=== PATIENT | male | born 1950 | race Caucasian/White ===

== ENCOUNTER → 2018-12-31 | Day surgery (SDC) | payer MEDICARE ==
[~2018-12-31] MED LIST: Diazepam TAB(*) 5 MG ONE; Heparin 2 UNITS/ML IVPREMIX* 2,000 ML IV ONE; Heparin(*) 1000 UNIT/ML 10 ML VIAL CATH LAB IV ONE; Iohexol 350 (CONTRAST) 200 ML MDV IV ONE; Lidocaine 1% INJ* 10 MG/ML 30 ML SDV ONE; Midazolam* 1 MG/ML 5 ML VIAL (5 MG) ONE; NS 0.9% 1000 ML** 1,000 ML IV SCH; VERAPAMIL 2.5 MG/ML 2 ML VIAL ** 5 mg/2 ml ONE; diPHENhydraMINE PO* 25 MG ONE; fentaNYL* 50 MCG/ML 2 ML VIAL (100 MCG VIAL) ONE; nitroGLYCERIN DRIP* 25,000 MCG/250 ML BTL ONE
[2018-12-31 11:57] LABS: BUN/Creatinine Ratio 19.2 (8-20); Calcium 9.4 mg/dL (8.6-10.3); EGFR African American 128.5 (>60); EGFR Non-African American 106.2 (>60)
--- NOTE | 2018-12-31 12:34 | CATH ---
"*[facility]* [place] [address] Main: [phone] [email or web address] Cardiac Catheterization Patient: Ghanshyam Contreras : 1950 Study Date: 12/31/2018 Age: 68 Gender: M HR: Height: 67 in /170.2 cm BSA: 2.36 m^2 Weight: 247.9 lb /112.7 kg BMI: 38.9 kg/m^2 Carbon Printer: Kaveh Gómez MD Ordering Physician: Kaveh Gómez MD Referring Physician: Kaveh Gómez MD D, - Right coronary angiography. - Left coronary angiography. - Left heart catheterization with angiography. Summary: 1. LAD: Mid-vessel lesion: There is a 90% stenosis. 2. 1st diagonal: Proximal vessel lesion: There is a 90% stenosis. 3. Left circumflex: Proximal vessel lesion: There is a 95% stenosis. Mid-vessel lesion: There is a 90% stenosis. 4. 1st obtuse marginal: Proximal vessel lesion: There is a 90% stenosis. 5. 2nd obtuse marginal: Proximal vessel lesion: There is a 90% stenosis. 6. Right coronary: Proximal vessel lesion: There is a 100% stenosis. 7. Left ventricle: Systolic function is normal. The estimated ejection fraction is 55-60%. 8. Severe 3 vessle CAD. Recommendations: Urgent CABG Case discussed with Dr Christine. History: Risk factors: Hypertension. Diabetes mellitus; on therapy with insulin. Medications: The patient received no antianginal therapy in the last two weeks. Labs, prior tests, procedures, and surgery: Stress myocardial perfusion imaging. Abnormal. High risk of ischemia. Blood tests: International normalized ratio (INR) of 1.02. Partial thromboplastin time (PTT) of 34.7 sec. Serum sodium (Na) of 136 mEq/l. Serum creatinine (current admission) of 0.71 mg/dl. Blood urea nitrogen of 14 mg/dl. Glucose of 248 mg/dl. Platelet count of 222 th/ul. White blood cell count (WBC) of 0.01 th/ul[place] [address] th/ul. Hematocrit of 45 %. Hemoglobin (pre-procedure) of 15.1 g/dl. Study data: Study status: Cardiac cath: elective. Location: Catheterization laboratory. Consent: The risks, benefits, and alternatives to the procedure were explained to the patient and/or their healthcare branch sales and service representative and written informed consent was obtained. All available pre-procedure labs were reviewed. Height: 170.2 cm. 67 in. Weight: 112.7 kg. 247.9 lb. Body surface area: 2.36 m^2. Body mass index: 38.9 kg/m^2. Procedure: 1. Initial setup. The patient was brought to the laboratory. Surface ECG leads, blood pressure measurements, and pulse oximetric signals were monitored. A baseline seven lead ECG was recorded. A time out was observed per protocol. 2. Skin preparation. The planned puncture sites were prepped and draped in the usual sterile manner. 3. Local anesthesia. 1% lidocaine was administered. 4. Sedation. was administered. 5. Supplemental oxygen. Oxygen, 2 L/min was administered throughout the procedure. 6. Local anesthesia. 1% lidocaine (1 ml) was administered. 7. Right radial artery access. A 6F Glidesheath Slender sheath was advanced into the vessel. 8. Selective right coronary angiography. A 5F TIG 4.0 catheter was advanced into the right coronary vessel ostium under fluoroscopic guidance. Contrast was injected. Images were obtained in multiple projections. 9. Selective left coronary angiography. A 5F FL 3.5 Diagnostic Impulse catheter was advanced into the left coronary vessel ostium under fluoroscopic guidance. Contrast was injected. Images were obtained in multiple projections. 10. Left heart catheterization with angiography. A 5F PIG Short Radial catheter was advanced across the aortic valve to the left ventricle under fluoroscopic guidance. 28 ml of contrast was injected at 14 ml/s. 11. Right radial artery hemostasis. Vessel closure was achieved with a Regular Vasc Band device. Study completion: Minimal estimated blood loss. All catheters inserted during the procedure were removed. There were no apparent complications. Administered medications: VALIUM (Diazepam), 5mg, PO. BENADRYL (Diphenhydramine), 25mg, PO. VERSED (Midazolam), 1mg, IV. Fentanyl, 25mcg, IV. (Radial) Nitroglycerin, 300mcg, intra-arterially. (Radial) Verapamil, 3mg, intra-arterially. (Radial) Heparin, 3,000units, intra-arterially. Contrast: Omnipaque 350 70 ml (total dose). Omnipaque 350 330 ml (wasted). Radiation: Fluoroscopy dose: 147.3 cGy. Discharge: The patient tolerated the procedure well and was discharged from the lab in stable condition. Findings Coronary arteries: The coronary circulation is right dominant. Left main: Normal, 0% stenosis. LAD: Mid-vessel lesion: There is a 90% stenosis. 1st diagonal: Severe diffuse disease. Proximal vessel lesion: There is a 90% stenosis. Left circumflex: Proximal vessel lesion: There is a 95% stenosis. Mid-vessel lesion: There is a 90% stenosis. 1st obtuse marginal: Proximal vessel lesion: There is a 90% stenosis. 2nd obtuse marginal: Proximal vessel lesion: There is a 90% stenosis. Right coronary: Proximal vessel lesion: There is a 100% stenosis. Left ventricle: Systolic function is normal. The estimated ejection fraction is 55-60%. Hemodynamics: + + + |Stage description |Condition 1 - | + + + |LV pressure s/d, ed |119/7, 16, dP/jk=7489 mm Hg/s| + + + |Arterial pressure s/d (m)|119/61 (88) | + + + Prepared and electronically signed by Kaveh Gómez MD 12/31/2018 12:33"
[2018-12-31 15:55] VITALS: BP 128/65
--- NOTE | 2018-12-31 23:58 | TRS ---
CC: Dr. Mitch Emery; Cardiothoracic Surgery, [facility], [place], [place] [address] * TRANSFER SUMMARY: DATE OF ADMISSION: 12/31/18 - [facility] CATH DATE OF TRANSFER: 12/31/18 INDICATION FOR TRANSFER: Coronary artery disease, coronary artery bypass surgery. The patient is a 68-year-old gentleman with history of diabetes and recent anginal type symptoms. Please see my dictated history and physical for details of this presentation. The patient does have crescendo angina. He did have a positive stress test. Cardiac catheterization was recommended. The patient underwent cardiac catheterization today, which demonstrated normal LV size and systolic function. No significant mitral regurgitation. His coronary artery showed three-vessel coronary artery disease. He had 95% stenosis to his left circumflex artery, 90% stenosis to his mid LAD and an occluded right coronary artery with [id number] collaterals. Because of the severity of the disease, it was decided that the patient needed to be transferred directly to a tertiary center for coronary artery bypass surgery. The patient elected to go to [facility]. His medications are the same as admission. On physical exam, vital signs are stable. Cardiac exam; S1 and S2 without any murmurs, rubs, or gallops. Lungs are clear to auscultation. Extremities show no edema. He has 2+ pulses throughout. The patient is awake, alert, and oriented. He moves all 4 extremities equally. DISPOSITION: The patient will be transferred to [facility] under the care of the cardiothoracic surgery department in preparation for coronary artery bypass surgery. FOLLOWUP: The patient will follow up in my office in 3 to 4 weeks. CONDITION AT DISCHARGE: Stable. I spent approximately an hour and a half arranging the transfer of this patient talking to multiple practitioners and making phone calls as well as talking to the patient. [id number]/[facility] #: [id number] SHEYLA
== END | disposition short-term general hospital (02) ==
LOC: CHICATH 10:35
PROVIDERS: ATTEND Specialist
DX: I25.119 Atherosclerotic heart disease of native coronary artery with unspecified angina pectoris (principal); I10 Essential (primary) hypertension; K21.9 Gastro-esophageal reflux disease without esophagitis; E78.00 Pure hypercholesterolemia, unspecified; G47.33 Obstructive sleep apnea (adult) (pediatric); E11.9 Type 2 diabetes mellitus without complications; Z79.84 Long term (current) use of oral hypoglycemic drugs; Z87.891 Personal history of nicotine dependence
CPT/HCPCS: 36415; 80048; 93458; 99156; 99157; A9270-GY; J1644; J2250; J3010